=== PATIENT | female | born 1955 | race Caucasian/White ===

== ENCOUNTER 2017-01-30 21:21 | Emergency (ER) | payer OTHER ==
[2017-07-11] MEDS ORDERED: PLAVIX 75 MG TA75 MG PO (19:43)
[2017-07-11] MEDS ORDERED: ASPIRIN CHEWABL81 MG PO (19:43)
[2017-07-11] MEDS ORDERED: TERBINAFINE HC250 MG PO (19:44)
[2017-07-15] MEDS ORDERED: HABITROL 21 MG P1 EA TD (13:46)
[2017-07-15] MEDS ORDERED: LIPITOR TAB 2020 MG PO (13:48)
[2017-07-15] MEDS ORDERED: NITROSTAT 0.40.4 MG SL (13:48)
[2017-07-15] MEDS ORDERED: ZESTRIL5 MG PO (13:49)
[2017-07-15] MEDS ORDERED: LOPRESSOR 25 MG25 MG PO (13:50)
[2017-07-15] MEDS ORDERED: BRILINTA 90 MG90 MG PO (13:50)
[2017-07-15] MEDS ORDERED: ASPIRIN CHEWABL81 MG PO (13:51)
== END 2017-01-30 23:55 | disposition left against medical advice (07) ==
LOC: ER1 21:21
DX: Z53.21 Procedure and treatment not carried out due to patient leaving prior to being seen by health care provider (principal)